=== PATIENT | female | born 1965 | race African-American/Black ===

== ENCOUNTER 2019-09-01 12:24 | Emergency (ER) | payer OTHER ==
[~2019-09-01] VITALS: Ht 182.9 cm; Wt 163.3 kg
[2019-09-01 13:03] VITALS: BP 161/77
[2019-09-01] MEDS ORDERED: NAPR-514 PO (14:17)
--- NOTE | 2019-09-01 14:17 | PHYS DOC ---
Past Medical History Past Medical History: Hypertension Additional Past Medical Histor: obesity (DILIP SEGUNDO APRN) Past Surgical History: Gastric Bypass (LAP BAND) (DILIP SEGUNDO APRN) Smoking: Less than 1pk/day Alcohol Use: Occasionally Drug Use: None (DILIP SEGUNDO APRN) Attending Signature I have participated in the care of this patient and I have reviewed and agree with all pertinent clinical information above including history, exam, and recommendations. (ELISA UBITRAGO MD) Adult General Chief Complaint Chief Complaint: COUGH HPI HPI Patient is a 54 year old AA female who presents to the emergency department with complaints of a nonproductive cough for the last week. Patient also complains of body aches, sore throat, intermittent wheezing, shortness of breath that increases with exertion, and pain with inspiration and coughing. Patient states she does smoke about half of a pack cigarettes a day. She states that her reports that at night she stops breathing and makes a gurgling noise every once in a while. Patient states that she wakes up frequently in the middle of night for several months. She does not currently have a primary care doctor. Patient denies any abdominal pain, chest pain, palpitations, ear pain, nausea, vomiting, diarrhea, fever, nasal congestion, headache, or chills. She denies any increased swelling of her lower extremities. She currently denies any pain. All other ROS is neg unless otherwise noted in HPI. (DILIP SEGUNDO APRN) Review of Systems Review of Systems See Above (DILIP SEGUNDO APRN) Allergies Allergies Allergies Coded Allergies Type Severity Reaction Last Updated Verified No Known Drug Allergies 09/01/19 No (ELISA BUITRAGO MD) Physical Exam Physical Exam See Above Constitutional: Well developed, well nourished, no acute distress, non-toxic appearance, obese[] HENT: Normocephalic, atraumatic, bilateral external ears normal, bilateral TMs normal, posterior pharynx normal, oropharynx moist, no oral exudates, nose normal. [] Eyes: PERRLA, EOMI, conjunctiva normal, no discharge. [] Neck: Normal range of motion, no tenderness, supple, no stridor. [] Cardiovascular:Heart rate regular rhythm, no murmur [] Lungs & Thorax: Bilateral breath sounds clear to auscultation; mild chest wall tenderness with palpation [] Skin: Warm, dry, no erythema, no rash. [] Back: No tenderness, no CVA tenderness. [] Extremities: No cyanosis, ROM intact Neurologic: Alert and oriented X 3, no focal deficits noted. [] Psychologic: Affect normal, judgement normal, mood normal. [] (DILIP SEGUNDO APRN) Current Patient Data Vital Signs Vital Signs Date Time Temp Pulse Resp B/P (MAP) Pulse Ox O2 Delivery O2 Flow Rate FiO2 09/01/19 13:03 97.7 101 18 161/77 (105) 98 Room Air 97.7 (ELISA BUITRAGO MD) EKG EKG [] (DILIP SEGUNDO APRN) Radiology/Procedures Radiology/Procedures [] (DILIP SEGUNDO APRN) Course & Med Decision Making Course & Med Decision Making Pertinent Labs and Imaging studies reviewed. (See chart for details) [] (DILIP SEGUNDO APRN) Dragon Disclaimer Dragon Disclaimer This electronic medical record was generated, in whole or in part, using a voice recognition dictation system. (DILIP SEGUNDO APRN) Departure Departure Impression: Primary Impression: Cough in adult patient Additional Impression: Acute costochondritis Disposition: 01 HOME, SELF-CARE Condition: STABLE Referrals: NO PCP (PCP) Patient Instructions: Costochondritis, [id number], Cough, Adult, [id number] Additional Instructions: Fill prescription(s) and use as directed. Recommend use of a Cool mist humidifier in room at bedtime. Increase clear fluids. Avoid airway triggers such as smoke, fragrance, dust, and pollen. May take [id number] cough suppressants as needed. Follow-up with your primary care doctor for evaluation of possible sleep apnea, return to the ER if symptoms worsen. Scripts Naproxen (NAPROXEN) 500 Mg Tablet 1 TAB PO BID PRN for PAIN for 10 Days, #20 TAB 0 Refills Prov: DILIP SEGUNDO APRN 09/01/19 Problem Qualifiers DILIP SEGUNDO APRN Sep 01, 2019 14:17 ELISA BUITRAGO MD Sep 02, 2019 19:01
== END 2019-09-01 14:21 | disposition home or self-care (01) ==
LOC: ER 12:24
DX: M94.0 Chondrocostal junction syndrome [Tietze] (principal); J02.9 Acute pharyngitis, unspecified; F17.200 Nicotine dependence, unspecified, uncomplicated; I10 Essential (primary) hypertension; E66.9 Obesity, unspecified; Z68.42 Body mass index [BMI] 45.0-49.9, adult; Z98.84 Bariatric surgery status
CPT/HCPCS: 99282